=== PATIENT | female | born 2000 | race Caucasian/White ===

== ENCOUNTER 2022-08-20 18:38 | Emergency (ER) | payer OTHER ==
[~2022-08-20] VITALS: Ht 154.9 cm; Wt 54.5 kg
[2022-08-20 19:50] LABS: BASO # 0.1 K/mm3 (0.0-0.2); BASO % 0.4 % (0.0-2.0); EOS % 0.3 % (0.0-4.0); GRAN # 9.6 K/mm3 (1.4-6.5); GRAN % 75.1 % (42.2-75.2); HEMATOCRIT 39.8 % (37.0-47.0); HEMOGLOBIN 13.4 g/dl (12.5-16.0); LYMPH # 2.3 K/mm3 (1.2-3.4); LYMPH % 17.8 % (20.0-51.0); MEAN CELL VOLUME 87 fl (80.0-100.0); MEAN CORPUSCULAR HEMOGLOBIN 29 pg (27-31); MEAN CORPUSCULAR HGB CONC 34 g/dl (33.0-37.0); MEAN PLATELET VOLUME 9.7 fl (7.4-10.4); MONO # 0.8 K/mm3 (0.1-0.6); PLATELET COUNT 315 K/mm3 (130-400); RED BLOOD COUNT 4.58 M/mm3 (4.10-5.30); REDCELL DISTRIBUTION WIDTH-CV 12.7 % (11.5-14.5)
[2022-08-20] MEDS ORDERED: DOXYCYCLINE 10100 MG PO (20:21)
[2022-08-20] MEDS ORDERED: NORCO 325 MG-51 TAB PO (20:25)
[2022-08-20 20:34] LABS: ALBUMIN 3.7 gm/dL (3.5-5.0); BILIRUBIN,TOTAL 0.6 mg/dL (0.2-1.2); CALCIUM 9.7 mg/dL (8.4-10.2); CREATININE, serum 0.77 mg/dL (0.57-1.11); POTASSIUM 4.3 mmol/L (3.5-4.5); TOTAL PROTEIN 7.8 gm/dL (6.2-8.1)
[2022-08-20 20:43] VITALS: BP 108/69; PULSE 99; TEMP 99.1
[2022-08-25 08:34] LABS: MUMPS AB IgG INDEX 0.6 (()); MUMPS VIRUS ANTIBODY,IGG Negative (())
== END 2022-08-20 20:47 | disposition home or self-care (01) ==
LOC: COL.ER 18:38
PROVIDERS: Family Medicine
DX: K11.20 Sialoadenitis, unspecified (principal)
CPT/HCPCS: J2405; J3010; Q9967